=== PATIENT | male | born 1980 | race Caucasian/White ===

== ENCOUNTER 2019-03-23 10:44 | Day surgery (SDC) | payer MEDICARE, MEDICAID ==
[~2019-03-23] VITALS: Ht 170.2 cm; Wt 65.0 kg
[2019-03-23] MEDS ORDERED: SODIUM CHLORIDE 0.9% 1,000 ML IV ONE (11:00)
[2019-03-23] MEDS ORDERED: ERGO500014 PO (11:23)
[2019-03-23] MEDS ORDERED: SEVE800T17 PO (11:23)
[2019-03-23] MEDS ORDERED: PHOSLOC PO (11:23)
[2019-03-23] MEDS ORDERED: OMEP20 PO (11:23)
[2019-03-23] MEDS ORDERED: CARV25 PO (11:23)
[2019-03-23] MEDS ORDERED: ISOS20TA9 PO (11:23)
[2019-03-23] MEDS ORDERED: ACET-2902 PO (11:23)
[2019-03-23] MEDS ORDERED: MELA5TAB3 PO (11:23)
[2019-03-23] MEDS ORDERED: ACET1TAB12 PO (11:23)
[2019-03-23] MEDS ORDERED: NIFE30TA5 PO (11:23)
[2019-03-23] MEDS ORDERED: LOSA50TA64 PO (11:23)
[2019-03-23] MEDS ORDERED: HYDR-2924 PO (11:23)
[2019-03-23] MEDS ORDERED: CALC500T7 PO (11:23)
[2019-03-23 11:55] LABS: BASOPHILS % (AUTO) 0.8 % (0.0-2.0); EOSINOPHILS % (AUTO) 0.2 % (1.0-6.0); HEMATOCRIT 35.1 % (41-53); HEMOGLOBIN 11.2 g/dL (13.5-17.5); LYMPHOCYTES # (AUTO) 1.5 K/uL (1.0-4.8); LYMPHOCYTES % (AUTO) 19.9 % (22.0-44.0); MEAN CORPUSCULAR HGB CONC 31.9 G/dL (31.0-37.0); MEAN CORPUSCULAR VOLUME 94 fL (80-100); MONOCYTES # (AUTO) 0.9 K/uL (0.1-1.0); MONOCYTES % (AUTO) 12.2 % (2.0-9.0); NEUTROPHILS # (AUTO) 5.1 K/uL (1.8-7.7); NEUTROPHILS % (AUTO) 66.9 % (40.0-70.0); PLATELET COUNT (AUTO) 245 K/uL (150-450); RED BLOOD CELL COUNT(AUTO) 3.73 MIL/uL (4.50-5.90); RED CELL DISTRIBUTION WIDTH 15.3 % (11.5-14.5)
[2019-03-23] MEDS ORDERED: MIDAZOLAM HCL 2 MG/2 ML VIAL IVP ONE (12:00)
[2019-03-23] MEDS ORDERED: 0.9% SODIUM CHLORIDE 10 ML VIAL IVP ONE (12:00)
[2019-03-23] MEDS ORDERED: FentaNYL CITRATE-PF 100 MCG/2 ML VIAL IVP ONE (12:00)
[2019-03-23] MEDS ORDERED: PROPOFOL 1% 20 ML VIAL IVP ONE (12:00)
[2019-03-23] MEDS ORDERED: PHENYLEPHRINE HCL 10 MG/ML VIAL IVP ONE (12:00)
[2019-03-23 12:10] LABS: CALCIUM, TOTAL 8.9 mg/dL (8.8-10.5); CREATININE 6.83 mg/dL (0.60-1.30); POTASSIUM 3.3 mmol/L (3.5-5.1)
[2019-03-23 12:14] LABS: INR 1.2 (0.9-1.1); PROTHROMBIN TIME 12.9 SEC (9.4-11.6)
[2019-03-23 12:16] LABS: ALBUMIN 3.2 g/dL (3.4-5.0); BILIRUBIN,TOTAL 1.2 mg/dL (0.1-1.0); TOTAL PROTEIN, SERUM 8.2 g/dL (6.4-8.2)
[2019-03-23] MEDS ORDERED: LIDOCAINE/PF 1% 30 ML VIAL ONE (12:19)
[2019-03-23] MEDS ORDERED: HEPARIN SODIUM 1000 UNITS/NS 0 ML ONE (12:20)
[2019-03-23 18:00] LABS: CALCIUM, TOTAL 8.6 mg/dL (8.8-10.5); CREATININE 7.13 mg/dL (0.60-1.30); POTASSIUM 3.6 mmol/L (3.5-5.1); TOTAL PROTEIN, SERUM 7.7 g/dL (6.4-8.2)
[2019-03-23] MEDS ORDERED: HYDROCODONE/ACETAMINOPHEN 10-325 MG TABLET PO ONE (18:00)
[2019-03-23] MEDS ORDERED: CYCLOBENZAPRINE HCL 10 MG TABLET PO ONE (18:00)
== END 2019-03-23 18:20 | disposition home or self-care (01) ==
LOC: SURGERY 10:44
PROVIDERS: ATTEND Surgery
DX: I12.0 Hypertensive chronic kidney disease with stage 5 chronic kidney disease or end stage renal disease (principal); N18.6 End stage renal disease; Z99.2 Dependence on renal dialysis; Z87.891 Personal history of nicotine dependence; Z79.899 Other long term (current) drug therapy; Z94.0 Kidney transplant status; Z98.890 Other specified postprocedural states
CPT/HCPCS: 36415; 37607; 80053; 85025; 85610; 85730; 86003; 86706; 86803; 87340; 93005; J0690; J2250; J2370; J2704; J3010; J3490; J1644